=== PATIENT | female | born 1990 | race Caucasian/White ===

== ENCOUNTER 2017-12-28 02:15 | Emergency (ER) | payer OTHER ==
[~2017-12-28] VITALS: Ht 154.9 cm; Wt 61.2 kg
[2017-12-28] MEDS ORDERED: LATUDA 60 MG (02:25)
[2017-12-28] MEDS ORDERED: LORAZEPAM TAB 1MG (02:25)
[2017-12-28] MEDS ORDERED: BUPROPN HCL (02:25)
[2017-12-28] MEDS ORDERED: CLONIDINE TAB 0.1MG (02:25)
[2017-12-28] MEDS ORDERED: [UNRECOGNIZED DRUG - OTHER] (02:25)
[2017-12-28] MEDS ORDERED: LINZESS CAP 145MCG (02:25)
[2017-12-28] MEDS ORDERED: ATOMOXETINE 60 MG (02:25)
[2017-12-28] MEDS ORDERED: TOPIRAMATE 100 MG (02:25)
--- NOTE | 2017-12-28 03:09 | NUR ---
PT AMBULATED TO ER ACCOMPANIED BY DIRECTOR/COUNSELOR FROM PREVIOUS REHAB FACILITY HERE FOR MEDICAL CLEARANCE. PER PT'S COUNSELOR, SHE RELAPSED WITH MULTIPLE SUBSTANCES AND IS NOW A CANDIDATE FOR ADMISSION TO [facility]. LABS DRAWN. URINE SENT TO LAB. PT IS CALM AND COOPERATIVE AT THIS TIME.
[2017-12-28 03:15] LABS: BASOPHILS % (AUTO) 0.3 % (0.0-2.0); EOSINOPHILS # (AUTO) 0.2 K/uL (0.0-0.7); EOSINOPHILS % (AUTO) 2.5 % (0.0-7.0); HEMATOCRIT 38.2 % (31.2-41.9); HEMOGLOBIN 13.7 g/dL (10.9-14.3); LYMPHOCYTES # (AUTO) 1.9 K/uL (20.0-40.0); LYMPHOCYTES % (AUTO) 27.3 % (20.5-51.5); MEAN CORPUSCULAR HEMOGLOBIN 30.3 uug (24.7-32.8); MEAN CORPUSCULAR HGB CONC 36 g/dL (32.3-35.6); MEAN CORPUSCULAR VOLUME 84.6 fL (75.5-95.3); MONOCYTES # (AUTO) 0.4 K/uL (2.0-10.0); MONOCYTES % (AUTO) 5.9 % (0.0-11.0); NEUTROPHILS # (AUTO) 4.4 K/uL (1.8-8.9); PLATELET COUNT (AUTO) 257 K/uL (179-408); RED BLOOD CELL COUNT(AUTO) 4.52 MIL/uL (3.63-4.92); WHITE BLOOD COUNT (AUTO) 6.9 K/uL (3.8-11.8)
[2017-12-28 03:22] LABS: *URINE HCG, QUAL NEGATIVE (NEGATIVE)
[2017-12-28 03:23] LABS: *AMPHETAMINE, URINE NEGATIVE (NEGATIVE); *BARBITURATE, URINE NEGATIVE (NEGATIVE); *CANNABINOID, URINE NEGATIVE (NEGATIVE); *COCCAINE, URINE NEGATIVE (NEGATIVE); *OPIATE, URINE NEGATIVE (NEGATIVE); *PHENCYCLIDINE SCREEN,URINE NEGATIVE (NEGATIVE)
[2017-12-28 03:27] LABS: *BILIRUBIN,URIN NEGATIVE (NEGATIVE); *BLOOD, URINE 1+ (NEGATIVE); *CLARITY,URINE CLEAR (CLEAR); *COLOR,URINE YELLOW (YELLOW); *KETONES,URINE NEGATIVE (NEGATIVE); *PROTEIN,URINE NEGATIVE (NEGATIVE); *UROBILINOGEN,URINE 0.2 E.U./dl (NORMAL); LEUKOCYTE ESTERASE ,URINE NEGATIVE (NEGATIVE); NITRITE, URINE NEGATIVE (NEGATIVE); PH,URINE 7.5 (5.0-8.0); UGLUCOSE NEGATIVE (NEGATIVE)
[2017-12-28 03:33] LABS: BACTERIA,URINE FEW /HPF (NONE SEEN); SQUAMOUS EPITHELIAL CELL,UR FEW /HPF (NONE SEEN); WBC,URINE 0-3 /HPF (0-3)
[2017-12-28 03:34] LABS: ALANINE AMINOTRANSFERASE 44 U/L (14-59); ALKALINE PHOSPHATASE 95 U/L (50-136); ASPARTATE AMINOTRANSFERASE 40 U/L (15-37); BILIRUBIN,DIRECT 0.1 mg/dL (0.0-0.2); BILIRUBIN,TOTAL 0.3 mg/dL (0.2-1.0); CARBON DIOXIDE 27 mmol/L (21-32); CHLORIDE 104 mmol/L (98-107); CREATININE 0.9 mg/dL (0.6-1.3); ETHANOL < 3 MG/DL (0-0); GLUCOSE 86 mg/dL (74-106); POTASSIUM 4.1 mmol/L (3.5-5.1); UREA NITROGEN, BLOOD 14 mg/dL (7-18)
[2017-12-28 03:35] LABS: ACETAMINOPHEN < 2.0 ug/mL (10-30)
--- NOTE | 2017-12-28 04:15 | NUR ---
[facility]'S DIRECTOR/COUNSELOR
--- NOTE | 2017-12-28 04:19 | NUR ---
Patient discharged to home in stable conditon. Written and verbal after care instructions given. Patient verbalizes understanding of instructions. Pt ambulated out of ER accompanied by director/counselor from previous rehab facility. All belongings with pt. VSS.
[2017-12-28 04:21] VITALS: BP 115/78
== END 2017-12-28 04:22 | disposition home or self-care (01) ==
LOC: ER 02:18
DX: F15.10 Other stimulant abuse, uncomplicated (principal); F11.10 Opioid abuse, uncomplicated; F12.10 Cannabis abuse, uncomplicated; F10.10 Alcohol abuse, uncomplicated; Z88.0 Allergy status to penicillin; Z79.899 Other long term (current) drug therapy
CPT/HCPCS: 36415; 80048; 80076; 80307; 81001; 84703; 85025; 99284; A4663; G0480 ×2; G0481